=== PATIENT | female | born 1985 | race Caucasian/White ===

== ENCOUNTER 2017-08-22 09:55 | Emergency (ER) | payer BC ==
[2017-08-22] MEDS ORDERED: Ondansetron ODT 4 MG TAB ONE (10:22)
[2017-08-22] MEDS ORDERED: traMADol HCl 50 MG TAB ONE (10:22)
== END 2017-08-22 10:50 | disposition home or self-care (01) ==
LOC: MADERS 09:55
DX: R51 Headache (principal); E11.9 Type 2 diabetes mellitus without complications; I10 Essential (primary) hypertension; J45.909 Unspecified asthma, uncomplicated; E78.5 Hyperlipidemia, unspecified
CPT/HCPCS: 99283; Q0162

== ENCOUNTER 2018-11-12 18:46 | Emergency (ER) | payer BC, SELFPAY ==
--- NOTE | 2018-11-12 19:45 | RAD ---
RIGHT FOREARM TWO VIEWS: 11/12/2018 HISTORY: Injury and right arm pain after moving a heavy object. COMPARISON: None. FINDINGS: Two views of the right forearm show no evidence of acute fracture or dislocation. No degenerative ch anges are seen. Mild soft tissue swelling is seen. IMPRESSION: No evidence of acute osseous abnormality. POS: [facility]
== END 2018-11-12 19:53 | disposition home or self-care (01) ==
LOC: MADERS 18:46
DX: S50.11XA Contusion of right forearm, initial encounter (principal); E11.9 Type 2 diabetes mellitus without complications; E78.5 Hyperlipidemia, unspecified; I10 Essential (primary) hypertension; W22.8XXA Striking against or struck by other objects, initial encounter

== ENCOUNTER 2018-11-27 04:59 | Emergency (ER) | payer SELFPAY ==
[2018-11-27] MEDS ORDERED: Ibuprofen 600 MG TAB ONE (05:31)
[2018-11-27] MEDS ORDERED: NS 0.9% w/ 20 MEQ KCL 0 ML ONE (06:19)
[2018-11-27] MEDS ORDERED: Sodium Chloride 0.9% 1,000 ML ONE ×2 (06:19→07:35)
[2018-11-27 06:20] LABS: #Monocytes 0.6 thou/uL (0.11-0.59); %Basophils 0.2 % (0.0-1.0); %Eosinophils 0.1 % (0.0-10.0); %Lymphocytes 11.9 % (21.0-51.0); %Monocytes 3.5 % (0.0-10.0); %Neutrophils 84.3 % (42.0-75.0); Hemoglobin 13.2 g/dL (12.0-16.0); Mean Corpuscular HGB CONC 33.9 g/dL (32.0-36.0); Mean Corpuscular Hemoglobin 30.7 pg (27.0-31.0); Mean Corpuscular Volume 90.7 fL (78.0-98.0); Platelet Count 274 thou/uL (130-400); RBC Distribution Width 11.1 % (11.5-14.5); Red Blood Cell (RBC) Count 4.29 mill/uL (4.20-5.40); White Blood Cell (WBC) Count 16.6 thou/uL (4.8-10.8)
[2018-11-27 06:32] LABS: BHCG - Serum Negative (NEGATIVE); Pregs Control Background? CLEAR/WHITE (CLR/WHITE); Pregs Control Bar Appear? YES (CONTROL BAR)
[2018-11-27 06:36] LABS: Anion Gap 17 mmol/L (10-20); BUN (Urea Nitrogen) 12 mg/dL (7.0-18.7); Calc. Creatinine Clearance 0 mL/min (70-130); Calcium 9.3 mg/dL (7.8-10.44); Carbon Dioxide 20 mmol/L (22-29); Chloride 104 mmol/L (98-107); Estimated GFR-MDRD 90; Glucose 139 mg/dL (70-105); Lipase 20 U/L (8-78); Potassium 3.6 mmol/L (3.5-5.1); Sodium 137 mmol/L (136-145)
[2018-11-27] MEDS ORDERED: Acetaminophen 500 MG TAB ONE (07:35)
[2018-11-27 07:42] LABS: Bilirubin Negative (Negative); Blood, Urine Negative (Negative); Clarity Clear (Clear); Glucose, Urine (Dipstick) Negative (Negative); Leukocyte Negative (Negative); Nitrite Negative (Negative); Protein, Urine (Dipstick) Negative (Neg-Trace); Specific Gravity, Urine 1.015 (1.005-1.030); Urobilinogen 0.2 mg/dL (0.2-1.0)
== END 2018-11-27 08:50 | disposition home or self-care (01) ==
LOC: MADERS 04:59
DX: K52.9 Noninfective gastroenteritis and colitis, unspecified (principal); E11.9 Type 2 diabetes mellitus without complications; E78.5 Hyperlipidemia, unspecified; I10 Essential (primary) hypertension; J45.909 Unspecified asthma, uncomplicated
CPT/HCPCS: 80048; 81003; 83690; 84703; 85025; 87804; 96360; 96361; J7050

== ENCOUNTER 2019-06-04 16:11 | Emergency (ER) | payer SELFPAY ==
[2019-06-04] MEDS ORDERED: Phenergan/Codeine 10-6.25mg/5ml UDCUP ONE (16:48)
[2019-06-04] MEDS ORDERED: Lidocaine 1% 20 ML MDV ONE (16:48)
[2019-06-04] MEDS ORDERED: cefTRIAXone\\ROCEPHIN 1 GM VIAL ONE (16:48)
--- NOTE | 2019-06-04 17:12 | RAD ---
EXAM: Portable chest PROVIDED CLINICAL HISTORY: Cough COMPARISON: 12/18/2013 FINDINGS: Cardiac and mediastinal silhouette is within normal limits. No focal consolidation, pleural fluid or pneumothorax evident. IMPRESSION: No evidence for an acute cardiopulmonary process.
--- NOTE | 2019-06-09 07:25 | PQF ---
[facility] POST DISCHARGE CLINICAL DOCUMENTATION IMPROVEMENT CLARIFICATION FORM l Todays Date: 06/07/19 l Patients Name Jaycee Teague l l Admit Date 06/04/19 l Disch Date 06/04/19 Sales And Distribution Clerk Name NURISJAYLON Email: [email or web address] Cell: [phone] To be completed by Sales And Distribution Clerk: Present Clinical Indicators - Signs / Symptoms Results and Location in Medical Record [ ] Documentation of: [ ] [ ] Documentation of: [ ] [ ] Documentation of: [ ] [ ] Documentation of: [ ] [ ] Risks [ ] [ ] [ ] Treatment [ ] Bronchitis Query for Specificity of Acute or Chronic of Bronchitis. [ ] [ ] To be completed by Physician: MD Garsia Michael The documentation in this patients record requires clarification to ensure coding compliance and accuracy. Check the appropriate box and include in your discharge summary. [ ] [ ] [ ] [ ] Please check this box if this does not apply to this patient [ ] Unable to determine [ ] Other diagnosis: Review the following information and exercise your independent professional judgment in responding to the clarification. Based upon the clinical findings, risk factors, and treatment, please clarify if you are treating one of the above probable or suspected diagnoses. Physician Signature: Date Time MTDD
== END 2019-06-04 17:28 | disposition home or self-care (01) ==
LOC: MADERS 16:11
DX: J40 Bronchitis, not specified as acute or chronic (principal); E11.9 Type 2 diabetes mellitus without complications; E78.5 Hyperlipidemia, unspecified; I10 Essential (primary) hypertension; Z79.899 Other long term (current) drug therapy
CPT/HCPCS: 71045; 96372; J0696; J1040; J2001; J7620

== ENCOUNTER 2019-06-09 15:16 | Outpatient (CLI) | payer OTHER ==
--- NOTE | 2019-06-09 15:34 | RAD ---
Chest 2 views HISTORY: Acute bronchitis. COMPARISON: 12/18/2013 FINDINGS:: Cardiac silhouette and pulmonary vasculature are unremarkable. Mediastinum is midline. No confluent airspace consolidation, pneumothorax, or pleural fluid. IMPRESSION: No active cardiopulmonary abnormalities are demonstrated.
== END 2019-06-09 15:17 | disposition home or self-care (01) ==
LOC: MADRAD 15:16
PROVIDERS: ATTEND Family Medicine
DX: J20.9 Acute bronchitis, unspecified (principal)
CPT/HCPCS: 71046

== ENCOUNTER 2019-09-30 12:45 | Emergency (ER) | payer SELFPAY | END 2019-09-30 13:50 | disposition home or self-care (01) | LOC: MADERS 12:45 | DX: J01.90 Acute sinusitis, unspecified (principal); B96.89 Other specified bacterial agents as the cause of diseases classified elsewhere; E11.9 Type 2 diabetes mellitus without complications; E78.5 Hyperlipidemia, unspecified; I10 Essential (primary) hypertension; J45.909 Unspecified asthma, uncomplicated; Z79.84 Long term (current) use of oral hypoglycemic drugs | CPT/HCPCS: 87804 ==

== ENCOUNTER 2020-11-07 00:04 | Emergency (ER) | payer SELFPAY ==
[2020-11-07] MEDS ORDERED: Ondansetron PF 4 MG/2 ML Vial ONE (00:43)
[2020-11-07] MEDS ORDERED: Ketorolac Tromethamine 30 MG/ML VIAL ONE (00:43)
[2020-11-07] MEDS ORDERED: Sodium Chloride 0.9% 1,000 ML ONE ×2 (00:43→02:50)
[2020-11-07] MEDS ORDERED: Acetaminophen 500 MG TAB ONE (00:43)
[2020-11-07 01:00] LABS: #Basophils 0.1 thou/uL (0.0-0.2); #Lymphocytes 1.6 thou/uL (1.20-3.40); #Neutrophils 13.3 thou/uL (1.40-6.50); %Basophils 0.4 % (0.0-1.0); %Eosinophils 0.2 % (0.0-10.0); %Lymphocytes 9.8 % (21.0-51.0); %Neutrophils 83.7 % (42.0-75.0); Hemoglobin 13.5 g/dL (12.0-16.0); Mean Corpuscular Hemoglobin 31.8 pg (27.0-31.0); Mean Corpuscular Volume 90.9 fL (78.0-98.0); Mean Platelet Volume 7.6 fL (7.4-10.4); Platelet Count 213 thou/uL (130-400); RBC Distribution Width 10.9 % (11.5-14.5); Red Blood Cell (RBC) Count 4.23 mill/uL (4.20-5.40); White Blood Cell (WBC) Count 15.9 thou/uL (4.8-10.8)
[2020-11-07 01:41] LABS: Bilirubin Negative (Negative); Blood, Urine Negative (Negative); Clarity Clear (Clear); Glucose, Urine (Dipstick) Negative (Negative); Ketone, Urine Negative (Negative); Leukocyte Negative (Negative); Nitrite Negative (Negative); Protein, Urine (Dipstick) Negative (Neg-Trace); Specific Gravity, Urine 1.015 (1.005-1.030); Urobilinogen 0.2 mg/dL (Less than 2)
[2020-11-07 01:49] LABS: ALT (SGPT) 24 U/L (8-55); AST (SGOT) 14 U/L (5-34); Albumin 4.2 g/dL (3.5-5.0); Alkaline Phosphatase 53 U/L (40-110); Anion Gap 17 mmol/L (10-20); BUN (Urea Nitrogen) 16 mg/dL (7.0-18.7); Bilirubin, Total 0.8 mg/dL (0.2-1.2); Calc. Creatinine Clearance 0 mL/min (70-130); Calcium 8.8 mg/dL (7.8-10.44); Carbon Dioxide 19 mmol/L (22-29); Chloride 105 mmol/L (98-107); Globulin 2.9 g/dL (2.4-3.5); Glucose 173 mg/dL (70-105); Potassium 3.7 mmol/L (3.5-5.1); Protein, Total 7.1 g/dL (6.0-8.3); Sodium 137 mmol/L (136-145)
[2020-11-07] MEDS ORDERED: Morphine 4 MG/ML VIAL ONE (02:14)
[2020-11-07] MEDS ORDERED: Ciprofloxacin 500 MG TAB ONE (02:14)
[2020-11-07] MEDS ORDERED: metroNIDAZOLE 250 MG TAB ONE (02:15)
--- NOTE | 2020-11-07 07:41 | CT ---
PRELIMINARY REPORT/[facility]/EMERGENCY AFTER HOURS PROCEDURE: EXAM: CT Abdomen and Pelvis with Intravenous Contrast CLINICAL HISTORY: LOWER ABD PAIN W/FEVERS. HX OF HYSTERECTOMY. TECHNIQUE: Axial computed tomography images of the abdomen and pelvis with intravenous contrast. CONTRAST: With; 90 ml ISOVUE 370 COMPARISON: None provided. FINDINGS: LUNG BASES: No basilar airspace consolidation or pleural effusion. LIVER: Unremarkable. GALLBLADDER AND BILE DUCTS: Unremarkable. No calcified stone. No ductal dilation. PANCREAS: Unremarkable. SPLEEN: Unremarkable. ADRENAL GLANDS: Unremarkable. KIDNEYS, URETERS, AND BLADDER: Unremarkable. No hydronephrosis or nephrolithiasis. No ureteral or kaylie dder calculi. STOMACH AND BOWEL: Distal colonic diverticulosis is present. There is colonic mucosal thickening iden tified involving the proximal and mid aspects of the sigmoid colon. Mesenteric inflammatory stranding is also identified adjacent to a diverticulum at the level of axial image 75 of series 2. M inimal fluid is observed without an organized fluid collection or evidence of free air. APPENDIX: No CT evidence for appendicitis. PERITONEUM: No free fluid. No free air. LYMPH NODES: A few mildly prominent central and right lower quadrant mesenteric lymph nodes are prese nt. REPRODUCTIVE: The uterus is surgically absent. There is a 4.4 cm low-attenuation focus within the lef t aspect of the pelvis, likely reflecting an adnexal cyst. VASCULATURE: No aortic aneurysm. BONES: No fracture or suspicious osseous abnormality. ABDOMINAL WALL AND SOFT TISSUES: A fat filled umbilical hernia is present. IMPRESSION: 1. Colonic diverticulosis with findings most consistent with focal diverticulitis involving the proxi mal to midportion of the sigmoid colon. Inflammatory stranding is present with minimal free fluid. No organized fluid collection or evidence of free air is identified. 2. Prior hysterectomy with a 4.4 cm low-attenuation focus within the left aspect of the pelvis, likel y reflecting an ovarian cyst. Because of its size, consideration should be given to pelvic ultrasonography. 3. A fat filled umbilical hernia. 4. A few borderline prominent central and right lower quadrant mesenteric lymph nodes. ELECTRONICALLY SIGNED BY: Aneudy Tesfaye MD Nov 07, 2020 1:23:38 AM [facility] FINAL REPORT CT ABDOMEN AND PELVIS WITH CONTRAST: History: Lower abdomen pain. Comparison: None. Findings/impression: Concordant with the initial report. Transcribed Date/Time: 11/07/2020 7:47 AM
[2020-11-07] MEDS ORDERED: Iopamidol 370 76% 100 ML VIAL ONE (10:04)
== END 2020-11-07 04:27 | disposition home or self-care (01) ==
LOC: MADERS 00:04
DX: K57.32 Diverticulitis of large intestine without perforation or abscess without bleeding (principal); E11.9 Type 2 diabetes mellitus without complications; K76.0 Fatty (change of) liver, not elsewhere classified; E78.5 Hyperlipidemia, unspecified; I10 Essential (primary) hypertension; J45.909 Unspecified asthma, uncomplicated; Z79.84 Long term (current) use of oral hypoglycemic drugs
CPT/HCPCS: 74177; 80053; 81003; 83605; 85025; 96374; 96375; J1885; J2270; J2405; J7050; Q9967

== ENCOUNTER 2020-12-17 13:08 | Emergency (ER) | payer SELFPAY ==
[2020-12-17] MEDS ORDERED: Aspirin Chewable 81 MG TAB ONE (13:36)
--- NOTE | 2020-12-17 13:51 | RAD ---
PORTABLE CHEST ONE VIEW: 12/17/20 at 1:31 p.m. HISTORY: Chest pain. COMPARISON: 06/09/19. The heart size is normal. The lungs are expanded without focal areas of consolidation, pneumothoraces , or pleural effusions. IMPRESSION: No radiographic evidence of acute cardiopulmonary process. POS: [facility]
[2020-12-17] MEDS ORDERED: Ketorolac Tromethamine 30 MG/ML VIAL ONE (14:44)
[2020-12-17] MEDS ORDERED: Ondansetron PF 4 MG/2 ML Vial ONE (14:45)
== END 2020-12-17 15:00 | disposition home or self-care (01) ==
LOC: MADERS 13:08
DX: R09.1 Pleurisy (principal); E78.5 Hyperlipidemia, unspecified; E78.00 Pure hypercholesterolemia, unspecified; E11.9 Type 2 diabetes mellitus without complications; K76.0 Fatty (change of) liver, not elsewhere classified; J45.909 Unspecified asthma, uncomplicated; Z79.84 Long term (current) use of oral hypoglycemic drugs
CPT/HCPCS: 36416; 71045; 80053; 84484; 85025; 93005; 94760; 96374; 96375; J1885; J2405

== ENCOUNTER 2021-04-21 18:21 | Emergency (ER) | payer BC ==
[2021-04-21] MEDS ORDERED: Amoxicillin/Potassium Clav 875 MG TAB ONE (18:54)
[2021-04-21] MEDS ORDERED: Ketorolac Tromethamine 60 MG/2 ML VIAL ONE (18:54)
[2021-04-21] MEDS ORDERED: predniSONE 20 MG TAB ONE (18:54)
== END 2021-04-21 19:20 | disposition home or self-care (01) ==
LOC: MADERS 18:21
DX: K12.2 Cellulitis and abscess of mouth (principal); R51.9 Headache, unspecified; E78.5 Hyperlipidemia, unspecified; E78.00 Pure hypercholesterolemia, unspecified; E11.9 Type 2 diabetes mellitus without complications; K76.0 Fatty (change of) liver, not elsewhere classified; J45.909 Unspecified asthma, uncomplicated; Z79.899 Other long term (current) drug therapy; Z79.84 Long term (current) use of oral hypoglycemic drugs
CPT/HCPCS: 96372; 99283; J1885; J7512

== ENCOUNTER 2021-05-26 19:23 | Emergency (ER) | payer BC ==
[2021-05-26] MEDS ORDERED: Sodium Chloride 0.9% 1,000 ML ONE (20:58)
[2021-05-26] MEDS ORDERED: Ondansetron PF 4 MG/2 ML Vial ONE (20:58)
[2021-05-26 21:30] LABS: ALT (SGPT) 44 U/L (8-55); AST (SGOT) 23 U/L (5-34); Albumin 4.4 g/dL (3.5-5.0); Alkaline Phosphatase 59 U/L (40-110); Anion Gap 16 mmol/L (10-20); BUN (Urea Nitrogen) 17 mg/dL (7.0-18.7); Bilirubin, Total 0.4 mg/dL (0.2-1.2); Calc. Creatinine Clearance 0 mL/min (70-130); Calcium 9.6 mg/dL (7.8-10.44); Carbon Dioxide 24 mmol/L (22-29); Chloride 103 mmol/L (98-107); Glucose 150 mg/dL (70-105); Protein, Total 7.4 g/dL (6.0-8.3); Sodium 139 mmol/L (136-145)
[2021-05-26 21:34] LABS: Hemoglobin 14.2 g/dL (12.0-16.0); Mean Corpuscular HGB CONC 34.5 g/dL (32.0-36.0); Mean Corpuscular Hemoglobin 31.6 pg (27.0-31.0); Mean Corpuscular Volume 91.7 fL (78.0-98.0); Mean Platelet Volume 7.7 fL (7.4-10.4); Platelet Count 274 thou/uL (130-400); RBC Distribution Width 11.3 % (11.5-14.5); Red Blood Cell (RBC) Count 4.51 mill/uL (4.20-5.40); White Blood Cell (WBC) Count 10.6 thou/uL (4.8-10.8)
[2021-05-26 21:35] LABS: %Eosinophils 1.2 % (0.0-10.0); %Lymphocytes 33.5 % (21.0-51.0); %Neutrophils 59.5 % (42.0-75.0)
[2021-05-26 21:36] LABS: #Basophils 0.1 thou/uL (0.0-0.2); #Eosinphils 0.1 thou/uL (0.0-0.7); #Lymphocytes 3.6 thou/uL (1.20-3.40); #Monocytes 0.5 thou/uL (0.11-0.59); #Neutrophils 6.3 thou/uL (1.40-6.50); %Basophils 0.8 % (0.0-1.0)
[2021-05-26 21:57] LABS: INR-International Normal Ratio 0.9; PTT 25.4 sec (22.9-36.1); Prothrombin Time 12.1 sec (12.0-14.7)
== END 2021-05-26 22:32 | disposition home or self-care (01) ==
LOC: MADERS 19:23
DX: K92.1 Melena (principal); K62.89 Other specified diseases of anus and rectum; R11.2 Nausea with vomiting, unspecified; R53.1 Weakness; E03.9 Hypothyroidism, unspecified; I10 Essential (primary) hypertension; E78.5 Hyperlipidemia, unspecified; E78.00 Pure hypercholesterolemia, unspecified; E11.9 Type 2 diabetes mellitus without complications; K76.0 Fatty (change of) liver, not elsewhere classified; J45.909 Unspecified asthma, uncomplicated; Z79.84 Long term (current) use of oral hypoglycemic drugs; Z79.899 Other long term (current) drug therapy
CPT/HCPCS: 80053; 82274; 85025; 85610; 85730; 96374; J2405; J7050

== ENCOUNTER 2021-08-23 09:51 | Emergency (ER) | payer BC ==
[2021-08-23] MEDS ORDERED: predniSONE 20 MG TAB ONE (11:50)
[2021-08-23 23:48] LABS: SARS-CoV-2 PCR by NAA Not Detected (NotDetected)
== END 2021-08-23 12:00 | disposition home or self-care (01) ==
LOC: MADERS 09:51
DX: J45.901 Unspecified asthma with (acute) exacerbation (principal); Z20.822 Contact with and (suspected) exposure to COVID-19; E03.9 Hypothyroidism, unspecified; I10 Essential (primary) hypertension; E78.5 Hyperlipidemia, unspecified; E78.00 Pure hypercholesterolemia, unspecified; E11.9 Type 2 diabetes mellitus without complications; Z79.84 Long term (current) use of oral hypoglycemic drugs; Z79.899 Other long term (current) drug therapy
CPT/HCPCS: 71046; J7512; U0003; U0005

== ENCOUNTER 2021-09-20 13:51 | Emergency (ER) | payer BC ==
[2021-09-20 15:04] LABS: Bilirubin Negative (Negative); Blood, Urine Negative (Negative); Glucose, Urine (Dipstick) Negative (Negative); Ketone, Urine Trace mg/dL (Negative); Leukocyte Negative (Negative); Nitrite Negative (Negative); Protein, Urine (Dipstick) Negative (Neg-Trace); Urobilinogen 0.2 mg/dL (Less than 2); pH, Urine 5.5 (5.0-9.0)
[2021-09-20 15:05] LABS: Clarity Hazy (Clear)
[2021-09-20 15:06] LABS: #Basophils 0.1 thou/uL (0.0-0.2); #Eosinphils 0.7 thou/uL (0.0-0.7); #Lymphocytes 3.6 thou/uL (1.20-3.40); #Monocytes 0.4 thou/uL (0.11-0.59); #Neutrophils 6.6 thou/uL (1.40-6.50); %Basophils 0.7 % (0.0-1.0); %Lymphocytes 31.5 % (21.0-51.0); %Monocytes 3.9 % (0.0-10.0); %Neutrophils 57.8 % (42.0-75.0); Hemoglobin 14.7 g/dL (12.0-16.0); Mean Corpuscular HGB CONC 33.5 g/dL (32.0-36.0); Mean Corpuscular Volume 92.7 fL (78.0-98.0); Mean Platelet Volume 7.1 fL (7.4-10.4); Platelet Count 325 thou/uL (130-400); RBC Distribution Width 11.4 % (11.5-14.5); Red Blood Cell (RBC) Count 4.72 mill/uL (4.20-5.40); White Blood Cell (WBC) Count 11.4 thou/uL (4.8-10.8)
[2021-09-20] MEDS ORDERED: Sodium Chloride 0.9% 1,000 ML ONE (15:06)
[2021-09-20] MEDS ORDERED: Ondansetron PF 4 MG/2 ML Vial ONE (15:06)
[2021-09-20 15:24] LABS: ALT (SGPT) 71 U/L (8-55); AST (SGOT) 52 U/L (5-34); Albumin 4.5 g/dL (3.5-5.0); Alkaline Phosphatase 70 U/L (40-110); Anion Gap 13 mmol/L (10-20); BUN (Urea Nitrogen) 15 mg/dL (7.0-18.7); Bilirubin, Total 0.6 mg/dL (0.2-1.2); Calc. Creatinine Clearance 0 mL/min (70-130); Calcium 9.7 mg/dL (7.8-10.44); Carbon Dioxide 25 mmol/L (22-29); Chloride 104 mmol/L (98-107); Globulin 3.2 g/dL (2.4-3.5); Glucose 144 mg/dL (70-105); Lipase 34 U/L (8-78); Potassium 3.4 mmol/L (3.5-5.1); Protein, Total 7.7 g/dL (6.0-8.3); Sodium 139 mmol/L (136-145)
== END 2021-09-20 16:04 | disposition home or self-care (01) ==
LOC: MADERS 13:51
DX: K52.9 Noninfective gastroenteritis and colitis, unspecified (principal); Z87.19 Personal history of other diseases of the digestive system; E03.9 Hypothyroidism, unspecified; E78.5 Hyperlipidemia, unspecified; E78.00 Pure hypercholesterolemia, unspecified; E11.9 Type 2 diabetes mellitus without complications; K76.0 Fatty (change of) liver, not elsewhere classified; J45.909 Unspecified asthma, uncomplicated; Z79.84 Long term (current) use of oral hypoglycemic drugs; Z79.899 Other long term (current) drug therapy
CPT/HCPCS: 80053; 81003; 83605; 83690; 85025; 96374; J2405; J7050

== ENCOUNTER 2021-12-28 16:16 | Outpatient (CLI) | payer OTHER | END 2021-12-28 16:17 | disposition home or self-care (01) | LOC: MADRAD 16:16 | PROVIDERS: ATTEND Family Medicine | DX: J45.901 Unspecified asthma with (acute) exacerbation (principal); J10.1 Influenza due to other identified influenza virus with other respiratory manifestations | CPT/HCPCS: 71046 ==

== ENCOUNTER 2025-01-12 11:00 | Emergency (ER) | payer BC, OTHER | END 2025-01-12 12:04 | disposition home or self-care (01) | LOC: MADERS 11:00 | DX: J11.1 Influenza due to unidentified influenza virus with other respiratory manifestations (principal); E11.9 Type 2 diabetes mellitus without complications | CPT/HCPCS: 36416; 71046 ==